=== PATIENT | male | born 1965 | race Caucasian/White ===

== ENCOUNTER 2021-02-24 17:28 | Inpatient (IN) | payer OTHER ==
[~2021-02-24] VITALS: Ht 175.3 cm; Wt 98.8 kg
[~2021-02-24 17:28] MED LIST: ALLEGRA-D 12 H1 EAC1 PO; BACTRIM DS TAB1 EACH PO; SUDAFED30 MG PO; ULTRAM 50MG TAB50 MG PO
[2021-02-24 17:45] VITALS: BP 97/52
[2021-02-24 18:14] LABS: HEMATOCRIT 40.4 % (42.0-52.0); HEMOGLOBIN 13.1 gm/dL (14.0-18.0); MCH 26.7 pg (26.0-34.0); MCHC 32.5 g/dL (28.0-37.0); MCV 82.2 fL (80.0-100.0); MPV 9.7 fl. (7.2-11.1); NUCLEATED RBCS 0 /100WBC; PLATELET COUNT* 224 thou/uL (150-400); RBC 4.92 mil/uL (4.50-6.00); RDW-CV 15.5 % (10.5-14.5); WBC 15.9 thou/uL (4.0-11.0)
[2021-02-24 18:20] LABS: ANION GAP 20 mmol/L (7-16); BUN 94 mg/dL (7-18); CALCIUM 7.2 mg/dL (8.5-10.1); CHLORIDE 86 mmol/L (98-107); CO2 24 mmol/L (21-32); CREATININE 9.1 mg/dL (0.6-1.3); GLUCOSE 122 mg/dL (70-99); POTASSIUM 5.5 mmol/L (3.5-5.1); SODIUM 130 mmol/L (136-145)
[2021-02-24 18:37] LABS: ALBUMIN 4.1 g/dL (3.4-5.0); ALKALINE PHOSPHATASE 170 U/L (46-116); LIPASE 552 U/L (73-393); NT-PRO BRAIN NAT PEPTIDE 9988 pg/mL (<300); TOTAL BILIRUBIN 0.4 mg/dL (<0.1-1.0); TOTAL PROTEIN 8.2 g/dL (6.4-8.2)
[2021-02-24 19:12] LABS: ABSOLUTE LYMPHOCYTES 1.1 thou/uL (0.8-5.3); ABSOLUTE MONOCYTES 0.5 thou/uL (0.0-1.2); ABSOLUTE NEUTROPHILS 14.3 thou/uL (1.6-8.1); PLATELET ESTIMATE ADEQUATE
[2021-02-24 19:56] LABS: SGPT 19417 U/L (30-65)
[2021-02-24 19:57] LABS: SGOT > 20000 U/L (15-37)
[2021-02-24] MEDS ORDERED: PYRIDIUM200 MG PO (20:16)
[2021-02-24 20:56] LABS: BE -12.3 mmol/L (-2 to +3)
[2021-02-24 20:59] LABS: pH 7.028 (7.340-7.450)
[2021-02-24 21:00] LABS: PCO2 76.2 mmHg (35.0-45.0); PO2 159.4 mmHg (75.0-100.0)
[2021-02-24 21:31] LABS: SALICYLATE 3.5 mg/dL (2.8-20.0)
[2021-02-24 21:34] LABS: URINE BLOOD 3+ (Negative); URINE COLOR YELLOW; URINE GLUCOSE-RANDOM NEGATIVE (Negative); URINE KETONES TRACE (Negative); URINE LEUKOCYTES-REFLEX NEGATIVE (Negative); URINE NITRITE-REFLEX NEGATIVE (Negative); URINE PROTEIN 2+ (Negative); URINE SPECIFIC GRAVITY >= 1.030 (1.005-1.030); URINE UROBILINOGEN 0.2 E.U./dl (0.2-1.0)
[2021-02-24 21:34] LABS: ACETAMINOPHEN < 2 ug/mL (10-30)
[2021-02-24 21:38] LABS: ICTOTEST (BILI CONFIRMATORY) Negative (Negative); URINE BILIRUBIN 1+ (Negative); URINE CLARITY HAZY
[2021-02-24 21:45] LABS: MUCUS None Seen strn/LPF (None Seen); SQUAMOUS NONE SEEN /LPF (0-3); URINE WBC-REFLEX 0-5 Rare /HPF (0-5)
[2021-02-24 21:46] LABS: AMP/METHAMP Negative (Negative); BARBITURATES Negative (Negative); BENZODIAZEPINES Negative (Negative); COCAINE Negative (Negative); HYALINE CASTS 0-3 Few /LPF (None Seen); METHADONE Negative (Negative); OPIATES POSITIVE (Negative); PCP Negative (Negative); THC Negative (Negative)
[2021-02-24 21:47] LABS: AMORPHOUS URATES Moderate /LPF (None Seen); URINE RBC 3-10 Few /HPF (0-2)
[2021-02-24 21:49] LABS: BACTERIA-REFLEX 1-9 Few /HPF (None Seen)
[2021-02-24 22:48] LABS: PO2 95.6 mmHg (75.0-100.0)
[2021-02-24 22:50] LABS: PCO2 80.6 mmHg (35.0-45.0); pH 7.003 (7.340-7.450)
[2021-02-24 22:54] LABS: APTT 29.3 Seconds (25.0-31.3); INR 1.1; PROTIME 11.5 Seconds (9.20-11.50)
[2021-02-25] VITALS (56 sets, daily range): BP systolic 63–115; BP diastolic 27–83
--- NOTE | 2021-02-25 00:13 | NUR ---
INTUBATION PERFORMED BY DR. MCCARTHY WITHOUT COMPLICATOIN. RESPIRATORY AT BEDSIDE.
--- NOTE | 2021-02-25 01:04 | NUR ---
SPOKE WITH SIGNIFICANT OTHER; EXPLAINED THAT THE PT STATUS HAS CHANGED; EXPLAINED THE PT IS INTUBATED, AND ON LIFE SAVING MEDICATION; STRESSED THE PT IS POSITIVE FOR COVID AND AT THIS TIME SHE IS UNABLE TO VISIT BUT WE WILL CONTINUE TO KEEP HER INFORMED OF CHANGED; SO VERBALIZED UNDERSTANDING; REPORTED THIS TO THE PTS NURSE
--- NOTE | 2021-02-25 01:25 | NUR ---
CENTRAL LINE PROCEDURE DONE EMERGENT BY DR. MCCARTHY.
[2021-02-25 01:29] LABS: BE -11.8 mmol/L (-2 to +3); PCO2 27.6 mmHg (35.0-45.0)
[2021-02-25 01:32] LABS: PO2 147.8 mmHg (75.0-100.0); pH 7.297 (7.340-7.450)
[2021-02-25 03:57] LABS: SALICYLATE 2.7 mg/dL (2.8-20.0)
[2021-02-25 03:59] LABS: ACETAMINOPHEN < 2 ug/mL (10-30)
--- NOTE | 2021-02-25 04:47 | NUR ---
RECIEVED PT FROM ER ARROUND 0215H, ON VENT AY 100% AND SEDATED WITH VERSED DRIP. PT WITHDREW TO PAIN ONLY UPON ARRIVAL. LEVO DRIP STARTED AND TITRATED. NOTED WITH BLACK DRAINAGE FROM OG. NO DISTRESS. JUST NOW, PT WOKE UP WITH VERBAL STIMULI AND OBEYED COMMANDS. CONTINUE MONITORING AND TOWARDS GOALS. LEVO AT .1MICS AND VERSED AT 1MG/HR.
[2021-02-25 05:13] LABS: URINE POTASSIUM-RANDOM 22.4 mmol/L
[2021-02-25 07:24] LABS: SALICYLATE < 2.8 mg/dL (2.8-20.0)
[2021-02-25 07:34] LABS: ACETAMINOPHEN < 2 ug/mL (10-30)
[2021-02-25 08:24] LABS: ABSOLUTE LYMPHOCYTES 1.4 thou/uL (0.8-5.3); ABSOLUTE MONOCYTES 0.2 thou/uL (0.0-1.2); ABSOLUTE NEUTROPHILS 8.7 thou/uL (1.6-8.1); BASOPHILS 0.2 %; HEMATOCRIT 35.6 % (42.0-52.0); HEMOGLOBIN 11.8 gm/dL (14.0-18.0); LYMPHOCYTES 13.2 %; MCH 26.9 pg (26.0-34.0); MCHC 33.3 g/dL (28.0-37.0); MCV 80.8 fL (80.0-100.0); MONOCYTES 2.2 %; MPV 9.6 fl. (7.2-11.1); NUCLEATED RBCS 0 /100WBC; PLATELET COUNT* 179 thou/uL (150-400); POLYS 84.4 %; RDW-CV 15.2 % (10.5-14.5); WBC 10.3 thou/uL (4.0-11.0)
[2021-02-25 08:33] LABS: INR 1.2; PROTIME 12.4 Seconds (9.20-11.50)
[2021-02-25 08:42] LABS: ALBUMIN 2.5 g/dL (3.4-5.0); TOTAL BILIRUBIN 0.3 mg/dL (<0.1-1.0); TOTAL PROTEIN 5.8 g/dL (6.4-8.2)
[2021-02-25 08:59] LABS: CREATININE 6.2 mg/dL (0.6-1.3); POTASSIUM 3.8 mmol/L (3.5-5.1)
--- NOTE | 2021-02-25 12:16 | EKG ---
[place] [address] ELECTROCARDIOGRAM REPORT Name: AMADEO HERNÁNDEZ Room: [address] ADM IN ..#: [id number] Admission: 02/24/21 Attend Phys: Nisreen Darby, Discharge: Date of : 69 Date of Service: 02/24/211811 Report #: [id number] THIS REPORT FOR: //name// [facility] ED Test Date: 2021-02-24 Test Time: 18:12:00 Pat Name: AMADEO HERNÁNDEZ Department: Room: [facility] Gender: M Company Pilot: ABRAHAN : 1965 Requested By: Patrick Winter Order Number: [id number] MD: Kenan Carbajal Measurements Intervals [place] Rate: 90 P: 20 IN: 137 QRS: 6 QRSD: 131 T: 5 QT: 380 QTc: 465 Interpretive Statements Sinus rhythm Right bundle branch block No previous ECG available for comparison Electronically Signed On 02-25-2021 12:16:38 RELIEF COOK by Kenan Carbajal [email or web address] <ELECTRONICALLY SIGNED> By: Kenan Carbajal MD, [facility] 02/25/21 1216 11 11 Kenan Carbajal MD, [facility] /EPI
--- NOTE | 2021-02-25 12:18 | EKG ---
[place] [address] ELECTROCARDIOGRAM REPORT Name: AMADEO HERNÁNDEZ Room: [address] IN ..#: [id number] Admission: 02/24/21 Attend Phys: Nisreen Darby, Discharge: Date of : 69 Date of Service: 02/24/212128 Report #: [id number] THIS REPORT FOR: //name// [facility] ED Test Date: 2021-02-24 Test Time: 21:29:34 Pat Name: AMADEO HERNÁNDEZ Department: Room: [facility] Gender: M Cone Tender: LILIANA : 1965 Requested By: Melba Grubbs Order Number: [id number] MD: Kenan Carbajal Measurements Intervals [place] Rate: 95 P: 41 [place]: 134 QRS: 0 QRSD: 188 T: 13 QT: 380 QTc: 478 Interpretive Statements Sinus rhythm Right bundle branch block Compared to ECG 02/24/2021 18:12:00 No significant changes Electronically Signed On 02-25-2021 12:18:33 FAMILY LIVING EDUCATOR by Kenan Carbajal [email or web address] <ELECTRONICALLY SIGNED> By: Kenan Carbajal MD, FAC 02/25/21 1218 28 28 Kenan Carbajal MD, [facility] /EPI
--- NOTE | 2021-02-25 13:13 | NUR ---
Pt is admitted on 02/24/21 with altered mental status. Pt is sedated and this life care planner called significant other - Hailey. Pt and significant other live in an apartment. Their are 5 steps to enter their apartment if you approach from the front entrance. Pt has no hx of dme, home health, or SNF. Hailey reports pt was independent in ADL's and mobility until the day before admission to the hospital. Rock reports pt just saw his PCP last Wednesday - 02/21/21. CM to continue to follow patient for discharge needs.
[2021-02-25 16:48] LABS: BE -7.6 mmol/L (-2 to +3); PCO2 25.3 mmHg (35.0-45.0); PO2 88.8 mmHg (75.0-100.0); pH 7.403 (7.340-7.450)
--- NOTE | 2021-02-25 18:47 | NUR ---
PT REMAINS INTUBATED AND ON MECHANICAL VENTILATION. PT ON SMALL AMOUNT OF LEVOPHED FOR PRESSURE SUPPORT AND VERSED FOR SEDATION. CONTINUE FREQUENT TURNS AND ORAL CARE. WILL CONTINUE TO ASSESS.
--- NOTE | 2021-02-25 19:24 | NUR ---
BEDSIDE REPORT GIVEN TO EVER MCKEON.
[2021-02-26] VITALS (151 sets, daily range): BP systolic 88–175; BP diastolic 48–90
--- NOTE | 2021-02-26 03:58 | NUR ---
ASSUMED CARE AT 1910H, ON VENT AT 50% AND TOLERTED. ON VERSD AT 5MG/HR AND LEVO DRIP, TITRATED. PT WAS FEVERISH, SPONGE BATH DONE. OBEYED COMMANDS. NO DISTRESS NOTED. CONTINUE MONITORING AND TOWARDS GOALS. LEVO AT .16MICS.
[2021-02-26 05:25] LABS: PCO2 22.9 mmHg (35.0-45.0); PO2 86.8 mmHg (75.0-100.0); pH 7.417 (7.340-7.450)
--- NOTE | 2021-02-26 06:23 | NUR ---
EARLY THIS MORNING, PT HAD A COUGHING FIT. NOTED WITH MODERATE AMOUNT OF YELLOWISH SECRETION FROM ETT.
[2021-02-26 06:28] LABS: INR 1.1; PROTIME 11.7 Seconds (9.20-11.50)
[2021-02-26 06:32] LABS: ABSOLUTE LYMPHOCYTES 1.3 thou/uL (0.8-5.3); ABSOLUTE MONOCYTES 0.3 thou/uL (0.0-1.2); ABSOLUTE NEUTROPHILS 7.2 thou/uL (1.6-8.1); BASOPHILS 0.2 %; HEMATOCRIT 35.7 % (42.0-52.0); LYMPHOCYTES 14.8 %; MCH 26.9 pg (26.0-34.0); MCHC 33.5 g/dL (28.0-37.0); MCV 80.2 fL (80.0-100.0); MONOCYTES 3.2 %; MPV 9.4 fl. (7.2-11.1); NUCLEATED RBCS 0 /100WBC; PLATELET COUNT* 171 thou/uL (150-400); POLYS 81.8 %; RBC 4.46 mil/uL (4.50-6.00); RDW-CV 15.2 % (10.5-14.5); WBC 8.9 thou/uL (4.0-11.0)
[2021-02-26 06:40] LABS: ALBUMIN 2.4 g/dL (3.4-5.0); POTASSIUM 3.6 mmol/L (3.5-5.1); TOTAL BILIRUBIN 0.4 mg/dL (<0.1-1.0); TOTAL PROTEIN 5.6 g/dL (6.4-8.2)
[2021-02-26 06:42] LABS: ALBUMIN 2.4 g/dL (3.4-5.0); MAGNESIUM 2.8 mg/dL (1.8-2.4); PHOSPHORUS* 5.2 mg/dL (2.5-4.9); POTASSIUM 3.6 mmol/L (3.5-5.1)
--- NOTE | 2021-02-26 10:35 | CON ---
[address] [address] CONSULTATION Name: AMADEO HERNÁNDEZ Room: [address] IN M.R.#: [id number] Admission: 02/24/21 Attend Phys: Nisreen Darby MD Discharge: Date of : 69 Report #: [id number] THIS REPORT FOR: cc: Rafael Belcher,Marco Gary MD ~ DATE OF CONSULTATION: 02/25/2021 NEPHROLOGY CONSULT CONSULTING PHYSICIAN: Dr. Darby. REASON FOR CONSULTATION: Acute kidney injury. HISTORY OF PRESENT ILLNESS: A 55-year-old gentleman admitted with altered mental status. He was found living in a poor situation with a smell of urine and stool in his home. He was intubated and sedated. He had low blood pressures down to the 50s systolic. His urine drug screen was positive for opiates. His creatinine was 9 on admission. He was started on Levophed. He had elevated liver functions and was seen by GI. He is producing urine. He is awake and alert and is able to nod his head and appears to be comfortable at present time. REVIEW OF SYSTEMS: Constitutional, psych, heme, eyes, ENT, respiratory, cardiac, GI, , endocrine, all negative except as documented above and as best as can be ascertained from chart review. PAST MEDICAL HISTORY: No known past medical history. MEDICATIONS: No known outpatient medications. FAMILY HISTORY: Nonpertinent for this 55-year-old gentleman. SOCIAL HISTORY: Urine drug screen was positive for opiates. There is no known tobacco use. There is a history of daily alcohol use. PHYSICAL EXAMINATION: VITAL SIGNS: Blood pressure 95/50, pulse 85, respirations 24, temperature 36.6. GENERAL: Awake, alert. EYES: Opens eyes. EARS: Externally normal. CARDIOVASCULAR: Regular rate. LUNGS: No crackles. GASTROINTESTINAL: Negative. MUSCULOSKELETAL: Nontender, [place] [address] CONSULTATION Name: AMADEO HERNÁNDEZ Room: [address]#: [id number] Admission: 02/24/21 Attend Phys: Nisreen Darby MD Discharge: Date of : 69 Report #: [id number] GENITOURINARY: Weber catheter in place. NEUROLOGIC: Alert. PSYCHIATRIC: On light sedation. LABORATORY DATA: White cell count 10.3, hemoglobin 11.8, platelets 179. Sodium 136, potassium 3.8, chloride 96, bicarbonate 16, BUN 103, creatinine 6.2, glucose 149, calcium 6, albumin 2.5. ASSESSMENT AND PLAN: 1. Acute kidney injury in the setting of shock with blood pressures in the 50s systolic. He did have Levophed ordered. CT abdomen and kidneys were okay. Baseline creatinine unknown. Admission creatinine 9.1. Salicylate and Tylenol levels were negative. Urine drug screen was negative except for opiates. 2. Respiratory acidosis with a pH as low as 7.0 with a pCO2 of 81 and a bicarbonate of 20. 3. Proteinuria with a urine protein to creatinine ratio of 1.2. UA showed 2+ protein, 3+ blood, 3-10 rbc's. 4. Hematuria with an elevated CK of 4500. 5. Elevated liver functions, likely in the setting of shock. GI was consulted. 6. COVID-19 screening was positive, PCR is pending. 7. Hypermagnesemia. Creatinine is better at 6.2. 8. Hypocalcemia. We will give a dose of IV calcium. 9. Producing urine. Hep B and C as well as HIV are pending. Last an ANCA and anti-GBM antibody, etc at this time as renal function is rapidly improving. We will check CK again in the a.m. and follow up at that time. Case was discussed with Dr. Jon as well as Dr. Ziegler. Thank you for requesting my opinion in the care and management of this patient. <ELECTRONICALLY SIGNED> By: Marco Hernandez MD 02/26/21 1035 1125 1201Afrance Hernandez MD /nt
[2021-02-26 13:08] LABS: HEPATITIS B SURFACE AG Negative (Negative); HIV-1/HIV-2 ANTIBODY Non Reactive (Non Reactive)
[2021-02-26 16:21] LABS: CALCIUM 7.5 mg/dL (8.5-10.1); CREATININE 3.1 mg/dL (0.6-1.3); POTASSIUM 4.2 mmol/L (3.5-5.1)
--- NOTE | 2021-02-26 16:34 | 2DMMODE ---
[place] [address] 2 D/M-MODE ECHOCARDIOGRAM Name: AMADEO HERNÁNDEZ Room: [facility] IN .[place].#: [id number] Admission: 02/24/21 Attend Phys: Nisreen Darby, Discharge: Date of : 69 Date of Service: 02/26/21 1633 Report #: [id number] THIS REPORT FOR: cc: Rafael Belcher,Rafael Dykes,Kenan Cm MD [facility] ~ APPROVED REPORT Study performed: 02/26/2021 13:46:12 EXAM: Comprehensive 2D, Doppler, and color-flow Echocardiogram Patient Location: In-Patient Room #: 002 Status: routine BSA: 2.14 HR: 70 bpm BP: 115/64 mmHg Rhythm: NSR Other Information Study Quality: Fair Indications Dyspnea 2D Dimensions IVSd: 10.46 (7-11mm) LVOT Diam: 22.74 (18-24mm) LVDd: 57.18 mm PWd: 9.99 (7-11mm) Ascending Ao: 31.04 (22-36mm) LVDs: 30.89 (25-40mm) Aortic Root: 37.14 mm Volumes Left Atrial Volume (Systole) LA ESV Index: 29.00 mL/m2 Aortic Valve AoV Peak Jason.: 1.86 m/s AO Peak Gr.: 13.81 mmHg LVOT Max P.70 mmHg AO Mean Gr.: 7.16 mmHg LVOT Mean P.86 mmHg LVOT Max V: 1.64 m/s AO V2 VTI: 27.25 cm LVOT Mean V: 0.99 m/s CARIDAD (VTI): 4.00 cm2 LVOT V1 VTI: 26.86 [place] [address] 2 D/M-MODE ECHOCARDIOGRAM Name: AMADEO HERNÁNDEZ Room: [address] IN .R.#: [id number] Admission: 02/24/21 Attend Phys: Nisreen Darby, Discharge: Date of : 69 Date of Service: 02/26/21 1633 Report #: [id number] Mitral Valve E/A Ratio: 1.29 MV Decel. Time: 227.91 ms MV E Max Jason.: 0.89 m/s MV PHT: 66.09 ms MVA (PHT): 3.33 cm2 TDI E/Lateral E': 5.56 E/Medial E': 7.42 Medial E' Jason.: 0.12 m/s Lateral E' Jason.: 0.16 m/s Pulmonary Valve PV Peak Jason.: 1.31 m/s PV Peak Gr.: 6.84 mmHg Left Ventricle The left ventricle is normal size. There is normal LV segmental wall motion. There is normal left ventricular wall thickness. Left ventricular systolic function is normal. The left ventricular ejection fraction is within the normal range. LVEF is 55-60%. The left ventricular diastolic function is normal. Right Ventricle The right ventricle is normal size. The right ventricular systolic function is normal. Atria Left atrium is mildly dilated. The right atrium size is normal. Aortic Valve The aortic valve is normal in structure. No aortic regurgitation is present. There is no aortic valvular stenosis. Mitral Valve The mitral valve is normal in structure. Trace mitral regurgitation. No evidence of mitral valve stenosis. Tricuspid Valve The tricuspid valve is normal in structure. Trace tricuspid regurgitation. Unable to assess PA pressure. Pulmonic Valve Pulmonic valve is not well visualized. There is no pulmonic [place] [address] 2 D/M-MODE ECHOCARDIOGRAM Name: AMADEO HERNÁNDEZ Room: [address] IN [facility]#: [id number] Admission: 02/24/21 Attend Phys: Nisreen Darby, Discharge: Date of : 69 Date of Service: 02/26/21 1633 Report #: [id number] Great Vessels The aortic root is normal in size. IVC is normal in size and collapses >50% with inspiration. Pericardium There is no pericardial effusion. <Conclusion> LVEF is 55-60%. Left atrium is mildly dilated. Trace mitral regurgitation. <ELECTRONICALLY SIGNED> By: Kenan Carabjal MD, FACC 02/26/21 1633 163 163 eKnan Carbajal MD, FACC /INF
[2021-02-26 18:59] LABS: BE -6.7 mmol/L (-2 to +3); PCO2 24.6 mmHg (35.0-45.0); pH 7.427 (7.340-7.450)
[2021-02-26 19:01] LABS: PO2 189.5 mmHg (75.0-100.0)
--- NOTE | 2021-02-26 19:35 | NUR ---
AROUND 1600 PT HAD COUGHING FIT AND POPPED OFF THE VENT, SP02 DROPPED INTO 60'S. PT ALSO WAS BITTING DOWN ON TUBE. RT BAGGED PT, AND ADDED BITE BLOCK. 50 FENT GIVEN, MAXED SEDATION GTTS PER PROVIDER, AND ADDED FENT GTT. SP02 IMPROVED. FI02 ON VENT BUMPED TO 70% BY RT. DR. RIVAS CAME TO BEDSIDE. SP02 STABLE AT 70% ON VENT WITH INCREASED SEDATION.
--- NOTE | 2021-02-26 22:32 | CON ---
[address] [address] CONSULTATION Name: AMADEO HERNÁNDEZ Room: [address] IN M.R.#: [id number] Admission: 02/24/21 Attend Phys: Nisreen Darby MD Discharge: Date of : 69 Report #: [id number] THIS REPORT FOR: cc: Rafael Belcher,Juan Anderson MD ~ DATE OF CONSULTATION: 02/26/2021 Consult has been requested by Dr. Ziegler. INDICATION FOR CONSULTATION: Acute respiratory failure. HISTORY OF PRESENT ILLNESS: This is a 55-year-old gentleman, there is limited information about his baseline status. There is no known past medical history other than seasonal allergies. The patient is now admitted with altered mental status. He was in profound shock with a blood pressure of 50 systolic. On initial presentation, he was positive for opiates. His creatinine was 9. We do not have his baseline creatinine available. The patient also has a considerable liver injury with an AST and ALT in the 20,000 range on initial presentation. Interestingly, however, not much elevation in PTT and PT. He has been on the ventilator. He has been fluid resuscitated. He still remains on norepinephrine, although the blood pressure has improved. He remains on Versed drip. He is also on Precedex drip, currently is ventilating and oxygenating adequately. He is on 50% FiO2. The patient, however, does have significant compensated metabolic acidosis. His set rate of the ventilator was 24 and he is breathing at that rate with pCO2 blown down to 22.9. pH is normal. The patient is on the ventilator and therefore is unable to provide further history or review of systems. PAST MEDICAL HISTORY: Seasonal allergies. SOCIAL HISTORY: Positive for opiates on admission. We do not have any other details available. ALLERGIES: No known drug allergies. FAMILY HISTORY: No known family history. HOME MEDICATIONS: Unknown. CURRENT MEDICATIONS: List reviewed. PHYSICAL EXAMINATION: GENERAL: He is sedated with Versed and Precedex. VITAL SIGNS: He has a pulse of 94 and a blood pressure of 92/51 [place] [address] CONSULTATION Name: AMADEO HERNÁNDEZ Room: [address] IN [facility]#: [id number] Admission: 02/24/21 Attend Phys: Nisreen Darby MD Discharge: Date of : 69 Report #: [id number] norepinephrine. He is saturating 95-96 on 50% FiO2, 5 of PEEP, rate set at 24, breathing at 24, tidal volume set at 650, high-grade fever at 39.0. HEENT: Head is normocephalic and atraumatic. There is an endotracheal tube in position. NECK: Does not show raised JVP, asymmetry, mass or lymph nodes. CHEST: Symmetrical expansion on inspection and palpation. On auscultation, breath sounds are bilaterally equal. I do not hear any added sounds. HEART: Regular. There is no murmur. ABDOMEN: Soft and nontender. EXTREMITIES: Lower extremities, trace edema, no calf tenderness. SKIN: Dry and intact. NEUROLOGIC: No focal deficit identified. DIAGNOSTIC DATA: The patient had multiple imaging studies as well as lab work and arterial blood gases performed. These are all in [facility] and are reviewed. LABORATORY DATA: The patient's lab work and arterial blood gases in [facility] reviewed. ASSESSMENT AND PLAN: 1. Acute hypoxemic respiratory failure. The patient is currently stable on the ventilator. He has a high-grade fever and also has a significant underlying metabolic acidosis, these may need to be corrected before he successfully weaned. For now, I continued with the current sedation. We will follow and may consider adding fentanyl drip later. 2. COVID-19. He is positive for COVID-19. I went ahead and ordered dexamethasone. I would hold off on remdesivir He does have renal and liver failure, Actemra is not available. I do not feel strongly either way regarding holding off or administering convalescent plasma. We will defer this to ID service as well. 3. High-grade fever/pulmonary infiltrates. I would panculture. After obtaining cultures, I ordered cefepime and linezolid to be started. Would defer followup of antibiotics to the ID service. 4. Acute renal failure with metabolic acidosis. There are significant underlying metabolic acidosis still. This has been compensated with a high respiratory rate of 24 and tidal volume of 650 on the ventilator. I would correct this to facilitate weaning. Therefore, I went ahead and started bicarbonate drip. Potassium is likely to drop; therefore, we will cautiously give him potassium despite acute renal failure. 5. Acute liver injury. He received acetylcysteine earlier unknown as to whether he had significant amount of Tylenol intake; we therefore not give him Tylenol for now for fever. The GI service is on the case. The last lipase was elevated. I recommend repeating a lipase level as well. [address] [address] CONSULTATION Name: AMADEO HERNÁNDEZ Room: [address] IN [facility].#: [id number] Admission: 02/24/21 Attend Phys: Nisreen Darby MD Discharge: Date of : 69 Report #: [id number] 6. Hypotension/elevated D-dimer. Check echocardiogram. Check venous Dopplers. 7. Deep venous thrombosis prophylaxis. Interestingly, his PT and PTT are normal. Ordered subcutaneous heparin. 8. Hyperglycemia, insulin sliding scale. 9. Gastrointestinal prophylaxis, Pepcid. 10. Clostridium difficile prophylaxis, Lactinex. 11. Nutrition. We will follow response to the above. I plan to order tube feeds down the line if okay with GI. The patient is critically ill at this time. Total time spent providing critical care to this patient today exceeds 41 minutes. <ELECTRONICALLY SIGNED> By: Juan Jon MD 02/26/21 2232 1210 Juan Jon MD /nt
[2021-02-27] VITALS (119 sets, daily range): BP systolic 87–145; BP diastolic 53–76
[2021-02-27 02:37] LABS: ABSOLUTE LYMPHOCYTES 0.9 thou/uL (0.8-5.3); ABSOLUTE MONOCYTES 0.1 thou/uL (0.0-1.2); ABSOLUTE NEUTROPHILS 5.8 thou/uL (1.6-8.1); BASOPHILS 0.3 %; HEMATOCRIT 35.1 % (42.0-52.0); HEMOGLOBIN 11.9 gm/dL (14.0-18.0); LYMPHOCYTES 12.6 %; MCV 79.5 fL (80.0-100.0); MONOCYTES 2.2 %; MPV 8.7 fl. (7.2-11.1); NUCLEATED RBCS 0 /100WBC; PLATELET COUNT* 146 thou/uL (150-400); POLYS 84.9 %; RBC 4.42 mil/uL (4.50-6.00); RDW-CV 15.4 % (10.5-14.5); WBC 6.8 thou/uL (4.0-11.0)
[2021-02-27 02:56] LABS: ALBUMIN 2.3 g/dL (3.4-5.0); CALCIUM 7.8 mg/dL (8.5-10.1); CREATININE 2.6 mg/dL (0.6-1.3); MAGNESIUM 2.8 mg/dL (1.8-2.4); POTASSIUM 3.4 mmol/L (3.5-5.1); TOTAL BILIRUBIN 0.4 mg/dL (<0.1-1.0); TOTAL PROTEIN 5.8 g/dL (6.4-8.2)
[2021-02-27 08:35] LABS: BE -0.4 mmol/L (-2 to +3); PCO2 31.9 mmHg (35.0-45.0); PO2 79.6 mmHg (75.0-100.0); pH 7.469 (7.340-7.450)
--- NOTE | 2021-02-27 16:31 | NUR ---
Pt continues to be in ICU. Pt is still on a vent but the plan is to start weaning patient off in 24-48 hours. Pt's liver and renal functions are improving. Pt lives with fiance. Anticipate pt will need SNF vs home health/DME. CM to continue to follow for discharge needs.
[2021-02-28] VITALS (36 sets, daily range): BP systolic 84–151; BP diastolic 59–85
[2021-02-28 12:16] LABS: HEMATOCRIT 33.4 % (42.0-52.0); HEMOGLOBIN 11.2 gm/dL (14.0-18.0); MCHC 33.4 g/dL (28.0-37.0); MCV 80.8 fL (80.0-100.0); MPV 9.9 fl. (7.2-11.1); NUCLEATED RBCS 0 /100WBC; PLATELET COUNT* 117 thou/uL (150-400); RBC 4.14 mil/uL (4.50-6.00); RDW-CV 15.5 % (10.5-14.5); WBC 9.6 thou/uL (4.0-11.0)
[2021-02-28 12:36] LABS: ALBUMIN 2.7 g/dL (3.4-5.0); CALCIUM 8.5 mg/dL (8.5-10.1); CREATININE 2.2 mg/dL (0.6-1.3); MAGNESIUM 2.6 mg/dL (1.8-2.4); POTASSIUM 3.6 mmol/L (3.5-5.1); TOTAL BILIRUBIN 0.5 mg/dL (<0.1-1.0); TOTAL PROTEIN 5.9 g/dL (6.4-8.2)
[2021-02-28 12:41] LABS: ABSOLUTE LYMPHOCYTES 0.7 thou/uL (0.8-5.3); ABSOLUTE MONOCYTES 0.4 thou/uL (0.0-1.2); ABSOLUTE NEUTROPHILS 8.5 thou/uL (1.6-8.1); PLATELET ESTIMATE DECREASED
--- NOTE | 2021-02-28 16:52 | NUR ---
Pt continues to be in the ICU. Pt continues to be on a vent but they were to attempt weaning trials today. Anticipate pt will need SNF on discharge. Cm to continue to follow for discharge planning.
--- NOTE | 2021-02-28 19:08 | EKG ---
[place] [address] ELECTROCARDIOGRAM REPORT Name: AMADEO HERNÁNDEZ Room: [address] ADM IN M.R.#: [id number] Admission: 02/24/21 Attend Phys: Nisreen Darby, Discharge: Date of : 69 Date of Service: 02/28/21 1257 Report #: [id number] THIS REPORT FOR: //name// [facility] Test Date: 2021-02-28 Test Time: 12:57:24 Pat Name: AMADEO HERNÁNDEZ Department: Room: [address] Gender: M Closing Machine Operator: JENNA : 1965 Requested By: Juan Jon Order Number: [id number] Reading MD: Kenan Carbajal Measurements Intervals [place] Rate: 59 P: 15 OR: 140 QRS: 16 QRSD: 126 T: 7 QT: 430 QTc: 426 Interpretive Statements Sinus rhythm Ventricular premature complex Nonspecific intraventricular conduction delay Compared to ECG 02/24/2021 21:29:34 Ventricular premature complex(es) now present Right bundle-branch block no longer present Electronically Signed On 02-28-2021 19:08:23 COFFEE BREAK ATTENDANT by Kenan Carbajal [email or web address] <ELECTRONICALLY SIGNED> By: Kenan Carbajal MD, FACC 02/28/21 1908 1257 1257 Kenan Carbajal MD, FACC /EPI
[2021-02-28 22:06] LABS: MYCOPLASMA PNEUMONIA IgG 503 U/mL (0-99); MYCOPLASMA PNEUMONIA IgM <770 U/mL (0-769)
[2021-03-01] VITALS (62 sets, daily range): BP systolic 126–189; BP diastolic 70–120
[2021-03-01 06:04] LABS: CALCIUM 8.9 mg/dL (8.5-10.1); CREATININE 1.6 mg/dL (0.6-1.3)
[2021-03-01 13:10] LABS: BE 3.6 mmol/L (-2 to +3); PCO2 33.9 mmHg (35.0-45.0); PO2 69.8 mmHg (75.0-100.0)
[2021-03-02] VITALS (40 sets, daily range): BP systolic 113–170; BP diastolic 69–91
[2021-03-02 04:51] LABS: ABSOLUTE LYMPHOCYTES 0.9 thou/uL (0.8-5.3); ABSOLUTE MONOCYTES 0.4 thou/uL (0.0-1.2); BASOPHILS 0.2 %; HEMATOCRIT 34.7 % (42.0-52.0); HEMOGLOBIN 11.3 gm/dL (14.0-18.0); LYMPHOCYTES 12.4 %; MCH 27.1 pg (26.0-34.0); MCHC 32.7 g/dL (28.0-37.0); MCV 82.8 fL (80.0-100.0); MONOCYTES 5.8 %; MPV 9.1 fl. (7.2-11.1); NUCLEATED RBCS 0 /100WBC; PLATELET COUNT* 59 thou/uL (150-400); POLYS 81.6 %; RBC 4.19 mil/uL (4.50-6.00); RDW-CV 15.1 % (10.5-14.5); WBC 7.4 thou/uL (4.0-11.0)
[2021-03-02 05:17] LABS: ALBUMIN 2.3 g/dL (3.4-5.0); CALCIUM 8.4 mg/dL (8.5-10.1); CREATININE 1.4 mg/dL (0.6-1.3); MAGNESIUM 1.8 mg/dL (1.8-2.4); POTASSIUM 4.5 mmol/L (3.5-5.1); TOTAL BILIRUBIN 0.3 mg/dL (<0.1-1.0); TOTAL PROTEIN 5.6 g/dL (6.4-8.2)
[2021-03-02 05:18] LABS: APTT 25.4 Seconds (25.0-31.3); PROTIME 10.5 Seconds (9.20-11.50)
[2021-03-02 15:11] LABS: ABSOLUTE LYMPHOCYTES 0.9 thou/uL (0.8-5.3); ABSOLUTE MONOCYTES 0.4 thou/uL (0.0-1.2); ABSOLUTE NEUTROPHILS 7.4 thou/uL (1.6-8.1); BASOPHILS 0.1 %; HEMOGLOBIN 11.6 gm/dL (14.0-18.0); MONOCYTES 4.7 %; MPV 9.6 fl. (7.2-11.1); NUCLEATED RBCS 0 /100WBC; PLATELET COUNT* 62 thou/uL (150-400); WBC 8.7 thou/uL (4.0-11.0)
[2021-03-02 15:12] LABS: HEMATOCRIT 35.8 % (42.0-52.0); LYMPHOCYTES 10.3 %; MCH 26.9 pg (26.0-34.0); MCHC 32.4 g/dL (28.0-37.0); POLYS 84.9 %; RBC 4.31 mil/uL (4.50-6.00); RDW-CV 15.6 % (10.5-14.5)
[2021-03-02 15:16] LABS: BE 2.5 mmol/L (-2 to +3); PCO2 VENOUS 37.8 mmHg (41.0-51.0); PO2 VENOUS 73.6 mmHg (35.0-45.0)
[2021-03-02 15:22] LABS: APTT 25.4 Seconds (25.0-31.3); INR 1.1
[2021-03-02 15:26] LABS: ALBUMIN 2.3 g/dL (3.4-5.0); CALCIUM 8.8 mg/dL (8.5-10.1); CREATININE 1.3 mg/dL (0.6-1.3); MAGNESIUM 1.6 mg/dL (1.8-2.4); POTASSIUM 4.6 mmol/L (3.5-5.1); TOTAL BILIRUBIN 0.4 mg/dL (<0.1-1.0)
--- NOTE | 2021-03-02 20:18 | NUR ---
SPOKE TO BOTH DR. NAVARRO AND DR. SALCEDO ABOUT THE POSSIBLY GI BLEEDING. PT TO NOT RECIEVE ANYTHING VIA TUBE AT THIS TIME. FENTANYL GTT CHANGED TO DILAUDID GTT. LASIX ORDERED AFTER TALKING TO DR. NAVARRO ABOUT THE PT BEING HYPERTENSIVE. BP AND RR BETTER AFTER THESE CHANGES.
[2021-03-03] VITALS (19 sets, daily range): BP systolic 92–170; BP diastolic 62–97
[2021-03-03 07:56] LABS: ALBUMIN 2.2 g/dL (3.4-5.0); CALCIUM 8.7 mg/dL (8.5-10.1); CREATININE 1.2 mg/dL (0.6-1.3); PHOSPHORUS* 3.5 mg/dL (2.5-4.9); POTASSIUM 4.4 mmol/L (3.5-5.1); TOTAL BILIRUBIN 0.5 mg/dL (<0.1-1.0); TOTAL PROTEIN 5.9 g/dL (6.4-8.2)
[2021-03-03 08:19] LABS: HEMATOCRIT 35.2 % (42.0-52.0); HEMOGLOBIN 11.3 gm/dL (14.0-18.0); MCH 26.7 pg (26.0-34.0); MCHC 32.1 g/dL (28.0-37.0); MCV 83.3 fL (80.0-100.0); MPV 10.5 fl. (7.2-11.1); RBC 4.22 mil/uL (4.50-6.00); RDW-CV 15.6 % (10.5-14.5); WBC 9.5 thou/uL (4.0-11.0)
[2021-03-03 10:50] LABS: BE -1.5 mmol/L (-2 to +3); PCO2 30.1 mmHg (35.0-45.0); PO2 76.6 mmHg (75.0-100.0); pH 7.466 (7.340-7.450)
--- NOTE | 2021-03-03 14:21 | NUR ---
Pt continues to be in the ICU and developed worsening of bilateral pulmonary opacites. He continues on a vent, precedex, and is receiving IV antibiotics (Cefepime and Micafungin). Due to patient coughing he has developed a hernia, tube feedings have been stopped, and surgery has been consulted. CM to continue to follow for discharge needs.
[2021-03-03 15:16] LABS: URINE BILIRUBIN NEGATIVE (Negative); URINE BLOOD 1+ (Negative); URINE CLARITY CLEAR; URINE COLOR YELLOW; URINE GLUCOSE-RANDOM NEGATIVE (Negative); URINE KETONES NEGATIVE (Negative); URINE LEUKOCYTES-REFLEX NEGATIVE (Negative); URINE NITRITE-REFLEX NEGATIVE (Negative); URINE PROTEIN 1+ (Negative); URINE UROBILINOGEN 0.2 E.U./dl (0.2-1.0)
[2021-03-03 15:34] LABS: SQUAMOUS NONE SEEN /LPF (0-3)
[2021-03-03 15:35] LABS: BACTERIA-REFLEX None Seen /HPF (None Seen); CASTS None Seen /LPF (None Seen); COARSE GRANULAR CASTS 0-3 Few /LPF (None Seen); CRYSTALS None Seen /LPF (None Seen); MUCUS None Seen strn/LPF (None Seen); URINE RBC None Seen /HPF (0-2); URINE WBC-REFLEX None Seen /HPF (0-5)
--- NOTE | 2021-03-03 19:06 | NUR ---
AT 0800 ASSESSMENT, PT WAS FOUND TO HAVE A TEMP OF 102.9. DR. NAVARRO AND DR. PICKETT NOTIFIED. TYLENOL RECTAL WAS ORDERED PT HAD NO TYLENOL ORDERED. PER DR. NAVARRO, NO MORE TYLENOL ORDERED UNTIL AFTER GI SAW THE PT. GI AND SURGERY WERE CONSULTED TODAY. AT [address] ASSESS[address] 104.[address] NAVARRO WAS NOTIFIED, HE SAID TO CALL GI BEFORE GIVING TYLENOL HE WAS CONCERNED FOR TYLENOL TOXICITY. DR. NGUYỄN WAS CALLED AND HE SAID LFTS WERE ELEVATED DUE TO SHOCK AND TO GO AHEAD AND GIVE THE TYLENOL. ART LINE WAS PLACED BY ANESTHESIA AT 0855. BP WAS HIGH ON ART LINE, SO HYDRALAZINE GIVEN PER DR. NAVARRO. PT WAS ALSO MISHRA CULTURED BECAUSE OF FEVER AND NEW ANTIBIOTICS WERE STARTED. PT REMAINS ON THE VENT AT 100% AND A PEEP OF 10. BROTHER GIVEN AN UPDATE ON CONDITION.
[2021-03-04] VITALS (44 sets, daily range): BP systolic 89–181; BP diastolic 52–92
[2021-03-04 04:55] LABS: ABSOLUTE LYMPHOCYTES 1.3 thou/uL (0.8-5.3); ABSOLUTE MONOCYTES 0.5 thou/uL (0.0-1.2); ABSOLUTE NEUTROPHILS 6.2 thou/uL (1.6-8.1); BASOPHILS 0.2 %; HEMATOCRIT 33.3 % (42.0-52.0); HEMOGLOBIN 10.8 gm/dL (14.0-18.0); LYMPHOCYTES 16.4 %; MCH 26.8 pg (26.0-34.0); MCHC 32.5 g/dL (28.0-37.0); MCV 82.4 fL (80.0-100.0); MONOCYTES 6.5 %; MPV 9.9 fl. (7.2-11.1); NUCLEATED RBCS 0 /100WBC; PLATELET COUNT* 94 thou/uL (150-400); POLYS 76.9 %; RBC 4.03 mil/uL (4.50-6.00); RDW-CV 15.4 % (10.5-14.5); WBC 8.1 thou/uL (4.0-11.0)
[2021-03-04 05:17] LABS: CALCIUM 8.2 mg/dL (8.5-10.1); CREATININE 0.9 mg/dL (0.6-1.3); MAGNESIUM 1.7 mg/dL (1.8-2.4); POTASSIUM 4.2 mmol/L (3.5-5.1); TOTAL BILIRUBIN 0.5 mg/dL (<0.1-1.0); TOTAL PROTEIN 5.6 g/dL (6.4-8.2)
[2021-03-04 08:50] LABS: BE 1.5 mmol/L (-2 to +3); PCO2 38.1 mmHg (35.0-45.0); PO2 107.2 mmHg (75.0-100.0); pH 7.444 (7.340-7.450)
[2021-03-04 18:07] LABS: CALCIUM 8.4 mg/dL (8.5-10.1); CREATININE 0.9 mg/dL (0.6-1.3); MAGNESIUM 1.4 mg/dL (1.8-2.4); POTASSIUM 4.2 mmol/L (3.5-5.1)
[2021-03-05] VITALS (36 sets, daily range): BP systolic 61–194; BP diastolic 45–80
[2021-03-05 05:22] LABS: ABSOLUTE LYMPHOCYTES 1.4 thou/uL (0.8-5.3); ABSOLUTE MONOCYTES 0.6 thou/uL (0.0-1.2); ABSOLUTE NEUTROPHILS 10.7 thou/uL (1.6-8.1); BASOPHILS 0.2 %; HEMATOCRIT 30.7 % (42.0-52.0); MCH 26.8 pg (26.0-34.0); MCHC 32.5 g/dL (28.0-37.0); MCV 82.4 fL (80.0-100.0); MONOCYTES 4.5 %; MPV 9.9 fl. (7.2-11.1); NUCLEATED RBCS 0 /100WBC; PLATELET COUNT* 162 thou/uL (150-400); POLYS 84.3 %; RBC 3.72 mil/uL (4.50-6.00); RDW-CV 14.8 % (10.5-14.5); WBC 12.7 thou/uL (4.0-11.0)
[2021-03-05 05:41] LABS: PHOSPHORUS* 2.9 mg/dL (2.5-4.9)
[2021-03-05 06:02] LABS: ALBUMIN 2.2 g/dL (3.4-5.0); CALCIUM 8.3 mg/dL (8.5-10.1); CREATININE 0.8 mg/dL (0.6-1.3); MAGNESIUM 1.6 mg/dL (1.8-2.4); POTASSIUM 4.2 mmol/L (3.5-5.1); TOTAL BILIRUBIN 0.4 mg/dL (<0.1-1.0); TOTAL PROTEIN 5.6 g/dL (6.4-8.2)
[2021-03-05 07:58] LABS: BE 0.1 mmol/L (-2 to +3); PCO2 34.8 mmHg (35.0-45.0); pH 7.452 (7.340-7.450)
--- NOTE | 2021-03-05 10:01 | NUR ---
ASSESS PT WITH DR. PICKETT. PT'S WORK OF BREATHING AND RESPIRATORY RATE INCREASING. PT KEEP TAKING NASAL CANULA OFF AND PULLING OFF COVERS. DR PICKETT SPOKE WITH SPOUSE ABOUT PT'S CONDITION. WILL CONTINUE TO ASSESS.
--- NOTE | 2021-03-05 15:14 | 2DMMODE ---
[facility] [place] [address] 2 D/M-MODE ECHOCARDIOGRAM Name: AMADEO HERNÁNDEZ Room: [address] IN R#: [id number] Admission: 02/24/21 Attend Phys: Nisreen Darby, Discharge: Date of : 69 Date of Service: 03/05/21 1514 Report #: [id number] THIS REPORT FOR: cc: Rafael Belcher Brad DO Holkins, John M. MD [facility] ~ APPROVED REPORT Study performed: 03/05/2021 13:33:47 EXAM: Limited 2D Echocardiogram Patient Location: In-Patient Room #: 002 Status: routine BSA: 2.14 HR: 137 bpm BP: 200/75 mmHg Other Information Study Quality: Good Indications reassess PA systolic Left Ventricle The left ventricle is normal size. There is normal LV segmental wall motion. There is normal left ventricular wall thickness. Left ventricular systolic function is hyperdynamic. LVEF is >70%. Right Ventricle The right ventricle is normal size. The right ventricular systolic function is normal. Atria The left atrium size is normal. The right atrium size is normal. Aortic Valve The aortic valve is normal in structure. Mitral Valve The mitral valve is normal in structure. Tricuspid Valve [place] [address] 2 D/M-MODE ECHOCARDIOGRAM Name: AMADEO HERNÁNDEZ Room: [address] IN M.R.#: [id number] Admission: 02/24/21 Attend Phys: Nisreen Darby, Discharge: Date of : 69 Date of Service: 03/05/211513 Report #: [id number] Trace tricuspid regurgitation. Unable to assess PA pressure. Great Vessels IVC is normal in size and collapses >50% with inspiration. Pericardium There is no pericardial effusion. <Conclusion> The left ventricle is normal size. There is normal left ventricular wall thickness. Left ventricular systolic function is hyperdynamic. LVEF is >70%. The right ventricle is normal size. The left atrium size is normal. The aortic valve is normal in structure. The mitral valve is normal in structure. IVC is normal in size and collapses >50% with inspiration. There is no pericardial effusion. There is normal LV segmental wall motion. <ELECTRONICALLY SIGNED> By: Amadeo Wiseman MD, FACC 03/05/211513 13 13 Amadeo Wiseman MD, FACC /INF
--- NOTE | 2021-03-05 15:52 | NUR ---
Pt remains in the ICU on a vent. They are starting tube feedings. If able to progress - anticipate the need for ARU vs SNF. CM to continue to follow for discharge planning.
[2021-03-05 18:04] LABS: CALCIUM 7.5 mg/dL (8.5-10.1); CREATININE 0.7 mg/dL (0.6-1.3); MAGNESIUM 1.6 mg/dL (1.8-2.4); POTASSIUM 3.7 mmol/L (3.5-5.1)
[2021-03-06] VITALS (22 sets, daily range): BP systolic 111–164; BP diastolic 46–78
[2021-03-06 05:05] LABS: ABSOLUTE LYMPHOCYTES 1.2 thou/uL (0.8-5.3); ABSOLUTE MONOCYTES 0.4 thou/uL (0.0-1.2); ABSOLUTE NEUTROPHILS 13.5 thou/uL (1.6-8.1); HEMATOCRIT 29.2 % (42.0-52.0); HEMOGLOBIN 9.5 gm/dL (14.0-18.0); LYMPHOCYTES 7.9 %; MCH 26.7 pg (26.0-34.0); MCHC 32.5 g/dL (28.0-37.0); MONOCYTES 2.4 %; MPV 10.2 fl. (7.2-11.1); NUCLEATED RBCS 0 /100WBC; PLATELET COUNT* 202 thou/uL (150-400); POLYS 89.7 %; RBC 3.56 mil/uL (4.50-6.00); RDW-CV 14.7 % (10.5-14.5)
[2021-03-06 05:15] LABS: ALBUMIN 2.5 g/dL (3.4-5.0); CALCIUM 8.3 mg/dL (8.5-10.1); CREATININE 0.8 mg/dL (0.6-1.3); POTASSIUM 4.4 mmol/L (3.5-5.1); TOTAL BILIRUBIN 0.4 mg/dL (<0.1-1.0); TOTAL PROTEIN 5.9 g/dL (6.4-8.2)
[2021-03-06 05:22] LABS: PHOSPHORUS* 3.4 mg/dL (2.5-4.9)
[2021-03-06 08:55] LABS: BE -3.8 mmol/L (-2 to +3); PO2 74.8 mmHg (75.0-100.0); pH 7.386 (7.340-7.450)
[2021-03-06 13:49] LABS: HEMATOCRIT 31.1 % (42.0-52.0); HEMOGLOBIN 9.9 gm/dL (14.0-18.0); MCH 26.3 pg (26.0-34.0); MCHC 31.8 g/dL (28.0-37.0); MCV 82.5 fL (80.0-100.0); MPV 10.2 fl. (7.2-11.1); NUCLEATED RBCS 0 /100WBC; PLATELET COUNT* 219 thou/uL (150-400); RBC 3.77 mil/uL (4.50-6.00); RDW-CV 15.1 % (10.5-14.5); WBC 13.3 thou/uL (4.0-11.0)
[2021-03-06 14:28] LABS: ABSOLUTE LYMPHOCYTES 1.2 thou/uL (0.8-5.3); ABSOLUTE MONOCYTES 0.1 thou/uL (0.0-1.2); PLATELET ESTIMATE ADEQUATE
--- NOTE | 2021-03-06 18:40 | NUR ---
REPORT RECIEVED FROM HEVER SALOMON RN. MONITORS INTACT, PT IN NO ACUTE DISTRESS AT THIS TIME. CARRION INTACT AND PATENT DRAINING YELLOW URINE. ETT INTACT AND CONNECTED TO VENTILATOR SETTINGS AC14, TV 530 FIO2 85% PEEP 12. OGT TUBE INTACT AT 60CM. CARRION INTACT AND PATENT DRAINING YELLOW URINE OT BEDSIDE BAG AT THIS TIME. WILL CONTINUE TO MONITOR
[2021-03-07] VITALS (15 sets, daily range): BP systolic 106–155; BP diastolic 42–74
[2021-03-07 07:10] LABS: APTT 22.6 Seconds (25.0-31.3); INR 1.1; PROTIME 10.9 Seconds (9.20-11.50)
[2021-03-07 07:19] LABS: PHOSPHORUS* 2.6 mg/dL (2.5-4.9)
[2021-03-07 08:04] LABS: ABSOLUTE MONOCYTES 0.3 thou/uL (0.0-1.2); ABSOLUTE NEUTROPHILS 17.4 thou/uL (1.6-8.1); BASOPHILS 0.1 %; HEMATOCRIT 33.8 % (42.0-52.0); HEMOGLOBIN 10.6 gm/dL (14.0-18.0); LYMPHOCYTES 5.5 %; MCH 25.8 pg (26.0-34.0); MCHC 31.4 g/dL (28.0-37.0); MCV 82.1 fL (80.0-100.0); MONOCYTES 1.4 %; MPV 10.6 fl. (7.2-11.1); NUCLEATED RBCS 0 /100WBC; PLATELET COUNT* 228 thou/uL (150-400); RBC 4.11 mil/uL (4.50-6.00); WBC 18.7 thou/uL (4.0-11.0)
[2021-03-07 08:15] LABS: ALBUMIN 2.6 g/dL (3.4-5.0); CALCIUM 8.8 mg/dL (8.5-10.1); CREATININE 0.9 mg/dL (0.6-1.3); MAGNESIUM 1.7 mg/dL (1.8-2.4); POTASSIUM 4.4 mmol/L (3.5-5.1); TOTAL BILIRUBIN 0.5 mg/dL (<0.1-1.0); TOTAL PROTEIN 6.2 g/dL (6.4-8.2)
[2021-03-07 08:31] LABS: BE -2.8 mmol/L (-2 to +3); PCO2 31.5 mmHg (35.0-45.0); PO2 63.8 mmHg (75.0-100.0); pH 7.435 (7.340-7.450)
--- NOTE | 2021-03-07 13:28 | NUR ---
Pt continues to be in the ICU on a vent at 75% Fi02. Currently his oxygen needs are to high for a trache but their is a discussion of possibly placing a trache and Peg tube next week. Anticipate patient could be a potential LTAC candidate. CM following for discharge planning.
[2021-03-08] VITALS (25 sets, daily range): BP systolic 90–300; BP diastolic 46–94
[2021-03-08 06:02] LABS: ABSOLUTE LYMPHOCYTES 0.7 thou/uL (0.8-5.3); ABSOLUTE MONOCYTES 0.2 thou/uL (0.0-1.2); ABSOLUTE NEUTROPHILS 10.7 thou/uL (1.6-8.1); HEMATOCRIT 23.2 % (42.0-52.0); MCH 26.8 pg (26.0-34.0); MCHC 31.4 g/dL (28.0-37.0); MCV 85.5 fL (80.0-100.0); MONOCYTES 1.9 %; NUCLEATED RBCS 0 /100WBC; PLATELET COUNT* 216 thou/uL (150-400); POLYS 92.1 %; RBC 2.72 mil/uL (4.50-6.00); RDW-CV 15.2 % (10.5-14.5); WBC 11.7 thou/uL (4.0-11.0)
[2021-03-08 06:04] LABS: HEMOGLOBIN 7.3 gm/dL (14.0-18.0)
[2021-03-08 06:11] LABS: PHOSPHORUS* 2.9 mg/dL (2.5-4.9)
[2021-03-08 06:30] LABS: ALBUMIN 2.3 g/dL (3.4-5.0); CALCIUM 8.3 mg/dL (8.5-10.1); CREATININE 0.7 mg/dL (0.6-1.3); MAGNESIUM 1.6 mg/dL (1.8-2.4); POTASSIUM 4.1 mmol/L (3.5-5.1); TOTAL BILIRUBIN 0.4 mg/dL (<0.1-1.0); TOTAL PROTEIN 5.8 g/dL (6.4-8.2)
[2021-03-09] VITALS (10 sets, daily range): BP systolic 110–146; BP diastolic 52–74
[2021-03-09 04:43] LABS: ABSOLUTE LYMPHOCYTES 0.8 thou/uL (0.8-5.3); ABSOLUTE MONOCYTES 0.3 thou/uL (0.0-1.2); ABSOLUTE NEUTROPHILS 16.1 thou/uL (1.6-8.1); EOSINOPHILS 0.1 %; HEMATOCRIT 25.6 % (42.0-52.0); HEMOGLOBIN 8.3 gm/dL (14.0-18.0); LYMPHOCYTES 4.9 %; MCH 26.7 pg (26.0-34.0); MCHC 32.4 g/dL (28.0-37.0); MCV 82.4 fL (80.0-100.0); MONOCYTES 1.5 %; MPV 10.1 fl. (7.2-11.1); NUCLEATED RBCS 0 /100WBC; POLYS 93.5 %; RDW-CV 14.9 % (10.5-14.5); WBC 17.2 thou/uL (4.0-11.0)
[2021-03-09 05:15] LABS: ALBUMIN 2.1 g/dL (3.4-5.0); CALCIUM 8.7 mg/dL (8.5-10.1); CREATININE 0.6 mg/dL (0.6-1.3); MAGNESIUM 1.6 mg/dL (1.8-2.4); POTASSIUM 4.4 mmol/L (3.5-5.1); TOTAL BILIRUBIN 0.5 mg/dL (<0.1-1.0); TOTAL PROTEIN 5.9 g/dL (6.4-8.2)
[2021-03-09 06:05] LABS: PLATELET COUNT* 294 thou/uL (150-400)
[2021-03-10] VITALS (22 sets, daily range): BP systolic 90–195; BP diastolic 39–68
[2021-03-10 04:01] LABS: HEMOGLOBIN 8.4 gm/dL (14.0-18.0); MCH 27.1 pg (26.0-34.0); MCHC 32.4 g/dL (28.0-37.0); MCV 83.6 fL (80.0-100.0); MPV 9.5 fl. (7.2-11.1); NUCLEATED RBCS 0 /100WBC; PLATELET COUNT* 306 thou/uL (150-400); RDW-CV 15.1 % (10.5-14.5); WBC 17.5 thou/uL (4.0-11.0)
[2021-03-10 04:22] LABS: ALBUMIN 1.7 g/dL (3.4-5.0); CALCIUM 8.7 mg/dL (8.5-10.1); CREATININE 0.7 mg/dL (0.6-1.3); MAGNESIUM 1.7 mg/dL (1.8-2.4); POTASSIUM 4.9 mmol/L (3.5-5.1); TOTAL BILIRUBIN 0.4 mg/dL (<0.1-1.0); TOTAL PROTEIN 5.9 g/dL (6.4-8.2)
[2021-03-10 08:12] LABS: ABSOLUTE LYMPHOCYTES 0.9 thou/uL (0.8-5.3); ABSOLUTE NEUTROPHILS 16.6 thou/uL (1.6-8.1)
[2021-03-10 08:14] LABS: PLATELET ESTIMATE ADEQUATE
--- NOTE | 2021-03-10 15:45 | NUR ---
Pt remains in the ICU. Pt continues to have high flow oxygen needs (85% Fi02). Doctor's are discussing possible need for trache and peg tube placement next week. If so, anticipate pt will need LTACH placement. CM to continue to follow for discharge needs.
--- NOTE | 2021-03-10 20:37 | NUR ---
At approx between the time of 0147-1315, pt became hypertensive with BP in the 190s-200s/50s-60s, HR: 110s-120s, RR: 28, SpO2 88%. RT, RN, and EMT student all at the bedside. Versed and Fentanyl PRN IVP given, PRN Hydralazine IVP, a PRN dose of Nimbex per Dr. Sterling, and Dr. Ziegler paged to come to pt's bedside. Dr. Ziegler at the bedside, new orders placed: IVP Metoprolol, chest XR, and a one time dose of 40mg of Lasiks. No new orders received for the hypoactive/absent bowel sounds at this time. Pt was bagged for 45 minutes to bring his SpO2 up from 81%, SpO2 came up to 94%, RT switched pt back to ventilator settings, Propofol gtt titrated up and Levophed gtt started for BP support d/t BP dropping from 190s/50s to 80s/40s. Pt continued to be bagged 1425: BP is now reading between 120s-130s/50s-60s, HR: 100s and lowering, RR: 20-21. Pt's position was changed to be up on his side as far as he can tolerate d/t not being stable enough to tolerate the position change to prone at this time. Will continue to monitor and make appropriate changes as necessary. Family called and updated on pt's condition.
[2021-03-11] VITALS (43 sets, daily range): BP systolic 95–198; BP diastolic 32–67
[2021-03-11 03:51] LABS: BE 0.2 mmol/L (-2 to +3)
[2021-03-11 04:06] LABS: PCO2 81.4 mmHg (35.0-45.0); PO2 149.6 mmHg (75.0-100.0)
[2021-03-11 04:43] LABS: ABSOLUTE LYMPHOCYTES 0.8 thou/uL (0.8-5.3); ABSOLUTE MONOCYTES 0.3 thou/uL (0.0-1.2); BASOPHILS 0.2 %; EOSINOPHILS 0.1 %; HEMOGLOBIN 8.5 gm/dL (14.0-18.0); LYMPHOCYTES 6.2 %; MCH 26.5 pg (26.0-34.0); MCHC 31.6 g/dL (28.0-37.0); MCV 84.1 fL (80.0-100.0); MONOCYTES 2.8 %; MPV 8.8 fl. (7.2-11.1); NUCLEATED RBCS 0 /100WBC; PLATELET COUNT* 296 thou/uL (150-400); POLYS 90.7 %; RBC 3.21 mil/uL (4.50-6.00); RDW-CV 15.2 % (10.5-14.5); WBC 12.1 thou/uL (4.0-11.0)
[2021-03-11 04:54] LABS: ALBUMIN 1.5 g/dL (3.4-5.0); CALCIUM 8.4 mg/dL (8.5-10.1); CREATININE 0.6 mg/dL (0.6-1.3); POTASSIUM 4.6 mmol/L (3.5-5.1); TOTAL BILIRUBIN 0.3 mg/dL (<0.1-1.0); TOTAL PROTEIN 5.6 g/dL (6.4-8.2)
[2021-03-11 10:04] LABS: BE 0.2 mmol/L (-2 to +3)
[2021-03-11 10:20] LABS: pH 7.215 (7.340-7.450)
[2021-03-11 10:21] LABS: PCO2 73.4 mmHg (35.0-45.0)
[2021-03-12] VITALS (36 sets, daily range): BP systolic 87–209; BP diastolic 45–77
--- NOTE | 2021-03-12 02:54 | NUR ---
03/11 2110 PT DECOMPENSTED. HR 130'S, O2 77, SBP 180-210. RT AT BEDSIDE BAG PT. SEE MAR FOR PRN MEDS - VERSED, FENTANYL, HYDRALAZINE. LUNGS SOUND COARSE 03/[address] RODRIGEZ. ORDER FOR LASIX (SEE I/O), METOPROLOL (SEE MAR) AND STAT CHEST X-RAY. ABLE TO MAINTAIN 02 90-93% WHEN BAGGING. HR 120S, REMAINS HYPERTENSIVE VIA ARTLINE. CONTINUES TO DECOMPENSATE WHEN CHANGED TO VENTILATOR RATE 30, TV 550, FiO2 100, PEEP 16. 03/[address] RODRIGEZ. CHANGE PEEP 18. O2 87-92%. 03/11 2300 REMAINS TACHYCARDIC, HYPERTENSIVE SPB>200. SEE MAR FOR SCHEDULED 0000 MEDS GIVEN. 03/12 115 HR 115-120, BP WITHIN NORMAL RANGES, NO STIMULATION OR REPOSITON O2 DROP 77%. RN BAG PT 10MIN TO 02 97%. 03/12 315 PT REMAINS TACHYCARDIC 113-115. SBP 110-115, O2 96% FiO2 100, PEEP 18
[2021-03-12 05:05] LABS: ABSOLUTE EOSINOPHILS 0.1 thou/uL (0.0-0.7); ABSOLUTE LYMPHOCYTES 0.8 thou/uL (0.8-5.3); ABSOLUTE MONOCYTES 0.3 thou/uL (0.0-1.2); ABSOLUTE NEUTROPHILS 12.1 thou/uL (1.6-8.1); BASOPHILS 0.1 %; EOSINOPHILS 0.5 %; HEMATOCRIT 26.8 % (42.0-52.0); HEMOGLOBIN 8.7 gm/dL (14.0-18.0); LYMPHOCYTES 6.2 %; MCH 26.6 pg (26.0-34.0); MCHC 32.3 g/dL (28.0-37.0); MCV 82.4 fL (80.0-100.0); MONOCYTES 2.5 %; NUCLEATED RBCS 0 /100WBC; PLATELET COUNT* 291 thou/uL (150-400); POLYS 90.7 %; RBC 3.25 mil/uL (4.50-6.00); WBC 13.4 thou/uL (4.0-11.0)
[2021-03-12 05:13] LABS: BE 0.9 mmol/L (-2 to +3); PO2 92.2 mmHg (75.0-100.0)
[2021-03-12 05:15] LABS: PCO2 58.5 mmHg (35.0-45.0); pH 7.297 (7.340-7.450)
[2021-03-12 05:17] LABS: PROTIME 10.1 Seconds (9.20-11.50)
[2021-03-12 05:31] LABS: CALCIUM 8.8 mg/dL (8.5-10.1); CREATININE 0.6 mg/dL (0.6-1.3); POTASSIUM 4.5 mmol/L (3.5-5.1); TOTAL BILIRUBIN 0.5 mg/dL (<0.1-1.0); TOTAL PROTEIN 5.9 g/dL (6.4-8.2)
--- NOTE | 2021-03-12 15:16 | NUR ---
Pt remains in the ICU with high oxygen needs - Fi02- 85%. Doctor has discussed the possible need of Trache and Peg tube next week. Anticipate the need for LTACH if these are placed. CM to continue to follow for discharge needs.
[2021-03-13] VITALS: BP 131/62
[2021-03-13 01:00] VITALS: BP 131/61
[2021-03-13 02:00] VITALS: BP 106/56
[2021-03-13 03:00] VITALS: BP 107/56
[2021-03-13 04:00] VITALS: BP 102/52
[2021-03-13 05:00] VITALS: BP 114/56
[2021-03-13 05:59] LABS: ABSOLUTE LYMPHOCYTES 0.8 thou/uL (0.8-5.3); ABSOLUTE MONOCYTES 0.4 thou/uL (0.0-1.2); ABSOLUTE NEUTROPHILS 12.7 thou/uL (1.6-8.1); BASOPHILS 0.2 %; EOSINOPHILS 0.1 %; HEMATOCRIT 27.5 % (42.0-52.0); HEMOGLOBIN 8.7 gm/dL (14.0-18.0); LYMPHOCYTES 5.9 %; MCH 26.2 pg (26.0-34.0); MCHC 31.8 g/dL (28.0-37.0); MCV 82.5 fL (80.0-100.0); MONOCYTES 2.9 %; MPV 8.8 fl. (7.2-11.1); NUCLEATED RBCS 0 /100WBC; PLATELET COUNT* 244 thou/uL (150-400); POLYS 90.9 %; RBC 3.33 mil/uL (4.50-6.00); RDW-CV 14.9 % (10.5-14.5); WBC 13.9 thou/uL (4.0-11.0)
[2021-03-13 06:33] LABS: ALBUMIN 1.7 g/dL (3.4-5.0); CREATININE 0.6 mg/dL (0.6-1.3); POTASSIUM 5.2 mmol/L (3.5-5.1); TOTAL BILIRUBIN 0.4 mg/dL (<0.1-1.0); TOTAL PROTEIN 5.7 g/dL (6.4-8.2)
[2021-03-13 21:15] LABS: URINE BILIRUBIN NEGATIVE (Negative); URINE BLOOD 2+ (Negative); URINE COLOR YELLOW; URINE GLUCOSE-RANDOM NEGATIVE (Negative); URINE KETONES NEGATIVE (Negative); URINE LEUKOCYTES-REFLEX NEGATIVE (Negative); URINE NITRITE-REFLEX NEGATIVE (Negative); URINE PROTEIN 1+ (Negative); URINE UROBILINOGEN 0.2 E.U./dl (0.2-1.0)
[2021-03-13 21:35] LABS: URINE CLARITY HAZY
[2021-03-13 21:36] LABS: BACTERIA-REFLEX None Seen /HPF (None Seen); CRYSTALS None Seen /LPF (None Seen); FINE GRANULAR CASTS 0-3 Few /LPF (None Seen); HYALINE CASTS 0-3 Few /LPF (None Seen); SQUAMOUS 0-3 Few /LPF (0-3); URINE RBC 0-2 Rare /HPF (0-2); URINE WBC-REFLEX 0-5 Rare /HPF (0-5)
[2021-03-14] VITALS (42 sets, daily range): BP systolic 37–181; BP diastolic 23–62
[2021-03-14 06:05] LABS: HEMATOCRIT 24.9 % (42.0-52.0); MCH 26.4 pg (26.0-34.0); MCHC 32.1 g/dL (28.0-37.0); MCV 82.4 fL (80.0-100.0); MPV 8.3 fl. (7.2-11.1); NUCLEATED RBCS 0 /100WBC; PLATELET COUNT* 209 thou/uL (150-400); RBC 3.02 mil/uL (4.50-6.00); RDW-CV 15.2 % (10.5-14.5); WBC 16.5 thou/uL (4.0-11.0)
[2021-03-14 07:17] LABS: ABSOLUTE LYMPHOCYTES 1.7 thou/uL (0.8-5.3); ABSOLUTE MONOCYTES 0.2 thou/uL (0.0-1.2); ABSOLUTE NEUTROPHILS 14.7 thou/uL (1.6-8.1)
[2021-03-14 07:18] LABS: PLATELET ESTIMATE ADEQUATE
[2021-03-14 11:08] LABS: BE 1.7 mmol/L (-2 to +3); PO2 64.6 mmHg (75.0-100.0)
[2021-03-14 11:10] LABS: pH 7.207 (7.340-7.450)
[2021-03-14 11:11] LABS: PCO2 79.6 mmHg (35.0-45.0)
--- NOTE | 2021-03-14 19:45 | NUR ---
pt 1829.
== END 2021-03-14 20:12 | DRG 870 ==
LOC: M.ERS 17:28 → M.TBA-ER 20:41 → M.ICU 20:41 → M.TBA-ER 23:19 → M.ICU 02-25 02:14
PROVIDERS: Emergency Medicine; Internal Medicine; Internal Medicine Critical Care Medicine; Internal Medicine Gastroenterology; Internal Medicine Nephrology; Nurse Practitioner Family; Pediatrics; Physician Assistant; ADMIT Internal Medicine; ATTEND Internal Medicine
PROC: 0BH17EZ Insertion of Endotracheal Airway into Trachea, Via Natural or Artificial Opening (ICD-10-PCS; principal; 2021-02-25)
PROC: 5A1955Z Respiratory Ventilation, Greater than 96 Consecutive Hours (ICD-10-PCS; principal; 2021-02-25)
DX: A41.9 Sepsis, unspecified organism (principal); U07.1 COVID-19; J80 Acute respiratory distress syndrome; J12.82 Pneumonia due to coronavirus disease 2019; N17.9 Acute kidney failure, unspecified; N39.0 Urinary tract infection, site not specified; S36.119A Unspecified injury of liver, initial encounter; K42.0 Umbilical hernia with obstruction, without gangrene; E46 Unspecified protein-calorie malnutrition; Z60.2 Problems related to living alone; R74.01 Elevation of levels of liver transaminase levels; D64.9 Anemia, unspecified; I95.9 Hypotension, unspecified; I11.0 Hypertensive heart disease with heart failure; Z66 Do not resuscitate; I50.9 Heart failure, unspecified; R31.9 Hematuria, unspecified; X58.XXXA Exposure to other specified factors, initial encounter; Y93.89 Activity, other specified; Z68.20 Body mass index [BMI] 20.0-20.9, adult; Y92.89 Other specified places as the place of occurrence of the external cause; Y99.8 Other external cause status